=== PATIENT | male | born 1990 | race Caucasian/White ===

== ENCOUNTER 2021-05-04 19:16 | Emergency (ER) | payer MEDICARE, MEDICAID, SELFPAY ==
[2021-05-04 19:17] VITALS: BP 133/83; PULSE 56; RESP 22; TEMP 36; O2SAT 99; BMI 46.0
--- NOTE | 2021-05-04 19:42 | CT_ITS ---
STUDY: CT BRAIN WITHOUT CONTRAST REASON FOR EXAM: Male, 30 years old. headache RADIATION DOSAGE (If Supplied By Facility): CTDIvol = ( 44.99 ) mGy, DLP = ( 779.24 ) mGycm TECHNIQUE: Transaxial CT imaging of the brain was performed without administration of intravenous contrast material. Individualized dose optimization techniques were used for this CT. COMPARISON: 01/21/2016 FINDINGS: Evidence of prior bilateral temporal craniectomies is noted. Ventriculostomy catheter placed through left frontal approach ends in the expected location of the foramen of MONRO. The second ventriculostomy catheter has been removed. There is no intra-/extra-axial fluid collection, mass effect, or midline shift. The reid/white matter junction is preserved. 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 The basal cisterns are patent. Polyps versus retention cysts in the right maxillary sinus. CT/Brain/Head without Contrast IMPRESSION: No definite acute intracranial finding. Electronically Signed: Toan Briseno MD at 20:29 EDT Tel , Service support ,
--- NOTE | 2021-05-04 19:43 | EDS_ITS ---
HPI History of Present Illness Chief Complaint: Other, Pain/Inj Detail of Chief Complaint: Headache and concern for malfunctioning [employer] shunt Informant: patient and spouse/S.O. Narrative Narrative: Patient states that he woke up from a nap about 4:30 PM with severe pain in the right side of his head and some swelling to his scalp on the right. Patient vomited 3-4 times and since then has vomited a total of 6 times. He complains of severe pressure in his head. Patient states last time this happened he required a shunt surgery at [facility] about 5 or 6 years ago. Patient has had a history of hydrocephalus and a [employer]CHIT[employer] shunt since he was an infant. Patient denies fever or recent illness. He denies Covid symptoms. Patient scheduled to follow-up in 1 week with neurosurgeon at [facility] because his significant other could not get anybody in [place] to see him for several months and she felt that he needed to have his [employer] shunt evaluated as patient has not followed up with a neurosurgeon in years. Patient has not had any issues with his [employer] shunt leading up to today. Prior similar symptoms: Yes [facility] Medical History (Updated 05/04/21 @ 22:[address] Roby Leal, DO) Blood clots in brain Home Medications buspirone 5 mg PO BID 05/04/21 [History Last Taken Unknown] citalopram [Celexa] 40 mg PO DAILY 05/04/21 [History Last Taken Unknown] lisinopril 10 mg PO DAILY 05/04/21 [History Last Taken Unknown] Allergy/AdvReac Type Severity Reaction Status Date / Time No Known Allergies Allergy Verified 05/04/21 19:17 Social History Smoking Status: Current every day smoker tobacco type: cigarettes ROS ROS ED Constitutional Constitutional ED: Reports systems reviewed and no addt'l complaints, except as documented; Denies body ache(s), change in weight or chills Eyes Eyes: Denies acute decrease in peripheral vision, change in vision, double vision or loss of vision ENT ENT ED: Reports none; Denies ear pain, lip swelling, loss taste/smell, neck pain, otalgia or sore throat Cardiovascular Cardiovascular: Reports none; Denies abdominal pain, chest pain with activity, leg edema, lightheadedness, palpitations, rapid heart rate or syncope Respiratory/Chest Respiratory/Chest: Reports none; Denies change in mental status, dry cough, dyspnea, hemoptysis, shortness of breath at rest or shortness of breath with exertion Gastrointestinal Gastrointestinal: Reports none, nausea and vomiting; Denies abdominal pain, change in stool character, diarrhea, hematemesis, hematochezia, melena or rectal bleeding Genitourinary Genitourinary ED: Reports none; Denies abdominal discomfort, anuria, dysuria, genital pain or polyuria Musculoskeletal Musculoskeletal: Reports none; Denies arthralgias, back pain, difficulty walking, extremity pain, muscle weakness or myalgias Integumentary Reports none; Denies abscess or rash Neurologic Neurologic: Reports none and headache(s); Denies abnormal gait, confusion, focal weakness, frequent falls, loss of vision, numbness, paresthesias, radicular pain, vertigo or weakness Psychiatric Psychiatric: Reports systems reviewed and no addt'l complaints, except as documented and none; Denies behavioral changes, confusion, difficulty concentrating, hallucinations, suicidal ideation, tactile hallucinations or visual hallucinations Endocrine Endocrinology: Denies none, cold intolerance, excessive sweating, fatigue or heat intolerance Hematologic/Lymphatic Hematologic/Lymphatic: Reports none; Denies anemia, easy bleeding or easy bruising Allergic/Immunologic Allergic/Immunologic ED: Denies as per HPI, none, lip swelling, mouth swelling, throat swelling, tongue swelling or hives EXAM Physical Exam Const Vital Signs: 05/04/21 19:17 05/04/21 22:45 Temperature 96.8 F L 98.0 F Temperature Source Temporal Temporal Pulse Rate 56 L 58 L Respiratory Rate 22 H 16 Blood Pressure 133/83 H 143/82 H Blood Pressure Mean 99 102 Pulse Ox 99 97 Oxygen Delivery Method Room Air Room Air Positive well nourished and well developed General Appearance ED: well developed and NAD HEENT Reports TM's clear and moist mucous membranes normocephalic and atraumatic; Negative for trauma or tenderness Tympanic Membrane ED: Yes TM's clear Eyes PERRL and EOMs intact bilaterally General Eye ED: Negative for pale conjunctiva or scleral icterus Neck no lymphadenopathy, supple and no JVD General: Negative for tenderness Chest Wall inspection of chest normal and palpation of chest normal Chest: Negative for tenderness Resp normal respiratory effort and clear to auscultation bilaterally Effort and Inspection: Negative for respiratory distress or pain with movement Auscultation: Negative for rhonchi, wheezes or diminished lung sounds Cardio regular rate, regular rhythm, S1 normal heart sound, S2 normal heart sound and no murmurs Peripheral Pulses: pulses 2+ throughout GI normal to inspection, nondistended, normoactive bowel sounds, soft to palpation, non-tender, non-distended and no masses Back/Spine no CVA tenderness and no thoracic nor lumbar tenderness Extremity normal to inspection General Extremety ED: Negative for edema General Extremity: Negative for edema Neuro oriented x3, CN's II-XII intact bilaterally, no sensory deficits noted and gait normal Sensorium / Orientation: awake, alert, oriented to person, oriented to place and oriented to time Motor Exam: strength 5/5 throughout and strength abnormal Psych mental status grossly normal Skin no rashes or lesions noted and no wounds MDM MDM MDM Narrative Medical decision making narrative: Patient will require a shunt evaluation. I suspect the elevated white count likely reactive due to retching and vomiting. He has not had any other infectious illness symptoms otherwise. Initially contacted [facility] to attempt to transfer patient there however they are on bypass and not accepting any patients. [facility] has been full and we have patients in our department awaiting beds there. Patient and his significant other requesting a [facility] facility and therefore I discussed case with Lilo in [facility]. Discussed case with who accepted transfer of patient. Lab Data Labs: Laboratory Results - last 24 hr 05/04/21 05/04/21 19:55 19:55 WBC 15.2 H RBC 5.12 Hgb 15.9 Hct 47.5 MCV 92.8 MCH 31.1 MCHC 33.5 RDW Std Deviation 43.8 RDW Coeff of Michelle 12.8 Plt Count 302 MPV 9.6 Immature Gran % (Auto) 0.500 Neut % (Auto) 77.3 H Lymph % (Auto) 15.2 L [place] % (Auto) 4.4 Eos % (Auto) 2.2 Baso % (Auto) 0.4 Absolute Neuts (auto) 11.7 H Absolute Lymphs (auto) 2.30 Nucleated RBC % 0 Sodium 140 Potassium 3.8 Chloride 108 H Carbon Dioxide 25.0 Anion Gap 7 BUN 16 Creatinine 0.85 Estim Creat Clear Calc 114.67 Est GFR (MDRD) Af Amer 136 Est GFR (MDRD) Non-Af 113 BUN/Creatinine Ratio 18.9 Glucose 106 Calcium 8.9 Radiography Diagnostic Testing: Radiology Impression Brain CT 05/04/21 19:42 IMPRESSION: No definite acute intracranial finding. Electronically Signed: Toan Briseno MD at 20:29 EDT Tel , Service support , Shuntogram 05/04/21 20:19 IMPRESSION: No evidence of discontinuity in the ventriculoperitoneal catheter. Apparent kinking of the catheter in 3 places, upper and lower abdomen. Electronically Signed: Toan Briseno MD at 20:56 EDT Tel , Service support , Discharge Plan Triage Chief Complaint: Other, Pain/Inj ED Provider: Roby Leal Dx/Rx/DC Orders Clinical Impression: Cephalalgia Prescriptions: No Action buspirone 5 mg Tablet 5 mg PO BID RF: 0 citalopram [Celexa] 40 mg Tablet 40 mg PO DAILY RF: 0 lisinopril 10 mg Tablet 10 mg PO DAILY RF: 0 Primary Care Provider: Delmi Doty NP Referrals: Delmi Doty NP, AUDIENCE COORDINATOR-C [Primary Care Provider] - Disposition Disposition: Transfer to Another Type [facility]
[2021-05-04] MEDS: Ondansetron 4 MG/2 ML Vial IV ×2 (19:56→23:31)
[2021-05-04] MEDS: Morphine 4 MG/ML Syringe IV ×2 (19:57→21:47)
[2021-05-04 20:12] LABS: Absolute Neutrophil Count 11.7 X10^3/uL (2.0-7.7); Basophil# 0.06 X10^3/uL; Basophil% 0.4 % (0-1); Eosinophil# 0.33 X10^3/uL; Eosinophils% 2.2 % (0-5); Hematocrit 47.5 % (40-54); Hemoglobin 15.9 g/dL (13.0-16.5); Lymphocyte % 15.2 % (19-41); Mean Corp Hgb Conc 33.5 g/dL (32-36); Mean Corpuscular Hgb 31.1 pg (27.0-32.0); Mean Corpuscular Volume 92.8 fL (80-94); Mean Platelet Vol. 9.6 fl (6.2-12.0); Monocyte# 0.67 X10^3/uL; Monocyte% 4.4 % (0-10); NRBC Flagged by Analyzer 0 % (0-5); Neutrophil # 11.72 X10^3/uL (2.7-7.7); Neutrophil % 77.3 % (47-70); Platelet Count 302 K/mm3 (150-450); RBC Distribution Width CV 12.8 % (11.6-14.6); RBC Distribution Width SD 43.8 fl (35.1-43.9); Red Blood Count 5.12 M/mm3 (4.6-6.2); White Blood Count 15.2 K/mm3 (4.4-11.0)
--- NOTE | 2021-05-04 20:19 | RAD_ITS ---
CLINICAL HISTORY: Male, 30 years old. Headache PROCEDURE: 4 views of the head, neck, chest, and abdomen Findings: Left ventriculoperitoneal catheter and in the lower abdomen. The catheter appears to be contained in 3 places, upper abdomen and lower abdomen.. There is no evidence of discontinuity in the shunt. Lungs clear. Cardiac silhouette unremarkable. Moderate amount of retained stool in the colon with no evidence of bowel obstruction. Apparent minimal dextroscoliosis of the lumbar spine is seen. RAD/Shuntogram/Prec Placed Shunt IMPRESSION: No evidence of discontinuity in the ventriculoperitoneal catheter. Apparent kinking of the catheter in 3 places, upper and lower abdomen. Electronically Signed: Toan Briseno MD at 20:56 EDT Tel , Service support ,
[2021-05-04 20:25] LABS: Anion Gap 7 (5-15); BUN 16 mg/dL (7-18); BUN/Creat Ratio 18.9 RATIO (10-20); Calcium,Total 8.9 mg/dL (8.5-10.1); Chloride 108 mmol/L (98-107); Creatinine, Serum 0.85 mg/dL (0.70-1.30); EST Glomerular Filtration Rate 113 mL/min (>60); Est Glom Filt Rate - Afr Amer 136 mL/min (>60); Estimated Creatinine Clearance 114.67 ml/min; Glucose 106 mg/dL (74-106); Potassium 3.8 mmol/L (3.5-5.1); Sodium Level 140 mmol/L (136-145)
--- NOTE | 2021-05-04 21:05 | ED.RN ---
CONTACTED [facility] FOR POSSIBLE TRANSFER AT THIS THE HOSPITAL IS FULL AND BED BOARDING IN THE ER. UNABLE TO ACCEPT NEW PATIENTS AT THIS TIME
--- NOTE | 2021-05-04 22:16 | ED.RN ---
[facility] called for possible transfer they will page doctor out
[2021-05-04 22:45] VITALS: BP 143/82; PULSE 58; RESP 16; TEMP 36.7; O2SAT 97
[2021-05-04 23:51] VITALS: BP 143/82; PULSE 58; RESP 16; TEMP 36.7; O2SAT 97
== END 2021-05-04 23:37 ==
PROVIDERS: Emergency Provider Emergency Medicine; PCP Nurse Practitioner Family
DX: R51.9 Headache, unspecified (principal); R11.10 Vomiting, unspecified; Z20.822 Contact with and (suspected) exposure to COVID-19; F17.210 Nicotine dependence, cigarettes, uncomplicated; Z79.899 Other long term (current) drug therapy; Z98.2 Presence of cerebrospinal fluid drainage device
CPT/HCPCS: 70450; 75809; 80048; 85025; 87426; 96374; 96375; 96376; 99285; A4216; J2405

== ENCOUNTER 2022-06-16 00:26 | Emergency (ER) | payer MEDICARE, MEDICAID, SELFPAY ==
[2022-06-16 00:27] VITALS: BP 153/86; PULSE 65; RESP 18; TEMP 37; O2SAT 98; BMI 44.2
--- NOTE | 2022-06-16 01:00 | RAD_ITS ---
INDICATION: VPS eval EXAMINATION/TECHNIQUE: X-RAY - XR Chest 2 Views COMPARISON: None. FINDINGS: LINES/DEVICES: Left ventriculoperitoneal shunt noted without disruption in the thoracic field of view. LUNGS: No consolidation, edema or effusion. No pneumothorax. MEDIASTINUM AND CARDIOVASCULAR STRUCTURES: Cardiac silhouette not enlarged. Central airways and mediastinal contour are unremarkable. BONES AND SOFT TISSUES: Unremarkable. RAD/Chest PA and Lateral IMPRESSION: No radiographic evidence of acute cardiopulmonary disease. No evidence of ventriculoperitoneal shunt disruption in the thoracic field of view. Electronically Signed: Carlos Olson MD at 6:39 EDT ,
[2022-06-16] MEDS: Metoclopramide 10 MG/2 ML Vial 5 MG IV (01:05)
[2022-06-16 01:08] LABS: Absolute Lymphocyte Count 4.04 X10^3/uL (0.83-4.51); Absolute Neutrophil Count 7.1 X10^3/uL (2.0-7.7); Basophil# 0.04 X10^3/uL; Basophil% 0.3 % (0-1); Eosinophil# 0.44 X10^3/uL; Eosinophils% 3.6 % (0-5); Hematocrit 49.2 % (40-54); Hemoglobin 16.7 g/dL (13.0-16.5); Lymphocyte # 4.04 X10^3/ul (0.83-4.51); Mean Corp Hgb Conc 33.9 g/dL (32-36); Mean Corpuscular Hgb 31.5 pg (27.0-32.0); Mean Corpuscular Volume 92.8 fL (80-94); Mean Platelet Vol. 9.3 fl (6.2-12.0); Monocyte# 0.58 X10^3/uL; Monocyte% 4.7 % (0-10); NRBC Flagged by Analyzer 0 % (0-5); Neutrophil # 7.13 X10^3/uL (2.7-7.7); Neutrophil % 58.2 % (47-70); Platelet Count 308 K/mm3 (150-450); RBC Distribution Width SD 44.3 fl (35.1-43.9); White Blood Count 12.3 K/mm3 (4.4-11.0)
--- NOTE | 2022-06-16 01:12 | CT_ITS ---
INDICATION: headache, shunt EXAMINATION: CT BRAIN - CT Head or Brain W/O Contrast Injection TECHNIQUE: Multiple axial images were obtained of the head without intravenous contrast. A radiation dose optimization technique was used for this scan. IV Contrast dosage and agent: None. COMPARISON: May 04, 2021 FINDINGS: BRAIN PARENCHYMA: Bilateral craniotomy with left frontal parietal ventricular shunt unchanged from prior CT. No hydrocephalus. Chronic 2 mm dural thickening or extra-axial fluid without change from May 04, 2021 deep to left craniotomy, axial image 25. Mallory-white matter differentiation is preserved. No intracranial mass or mass effect. No superficial scalp hematoma. Unremarkable orbits. Scattered mild paranasal sinus mucoperiosteal thickening. Mastoid air cells are clear. ASPECTS Score for Acute Strokes: 10 CT/Brain/Head without Contrast IMPRESSION: No evidence of acute intracranial process.. Postsurgical, chronic findings as above without significant change from May 04, 2021 Electronically Signed: Carlos Olson MD at 1:55 EDT ,
--- NOTE | 2022-06-16 01:14 | EX.ED.VIS.HA ---
HPI History of Present Illness Chief Complaint: Headache Informant: patient Onset/Context/Timing Onset: Today Context: Gradual and Onset (Earlier, headache present all day) Timing: Continuous Quality -Headache: Positive for Throbbing Location: Occipital Current Severity: Moderate Maximum Severity: Moderate Worsened by: Nothing Relieved by: Nothing Associated Symptoms/Injury Associated Symptoms: Positive for Nausea, Vomiting and - (Off balance with walking); Negative for Fever, Sore Throat, Numbness, Tingling, Visual Changes, Blurred Vision, Photophobia or Visual Loss Injury - IRIZARRY: Negative for Direct Trauma, Fall or Assault Narrative Narrative: Patient has a history of congenital hydrocephalus that required a [employer] CROPS shunt, he has had replacements and revision as the last one was in 2016, he states he gets headaches every day but they are usually either right or left or both, today it has been occipital, more severe with regards to the severity than he is used to with his normal headaches, and associated with vomiting which is new. He denies any fevers or chills, no recent confusion, he has been off balance but no other focal neurologic symptoms, no neck stiffness. He has had his shunt surgeries done at [facility]. [facility] Medical History (Updated 06/16/22 @ 02:[address] Raudel Peter MD) Blood clots in brain Hydrocephalus, congenital Home Medications NK 06/16/22 [History Last Taken Unknown] Allergy/AdvReac Type Severity Reaction Status Date / Time No Known Allergies Allergy Verified 05/04/21 19:17 Surgical History (Updated 06/16/22 @ 02:[address] Raudel Peter MD) F[employer] CROPS (ventriculoperitoneal) shunt status Social History Smoking Status: Current every day smoker tobacco type: cigarettes ROS ROS ED Constitutional Constitutional ED: Denies chills or fever(s) Eyes Eyes: Denies change in vision or diplopia ENT ENT ED: Denies rhinorrhea or sore throat Cardiovascular Cardiovascular: Denies chest pain or palpitations Respiratory/Chest Respiratory/Chest: Denies cough or dyspnea Gastrointestinal Gastrointestinal: Reports nausea and vomiting; Denies abdominal pain or diarrhea Genitourinary Genitourinary ED: Denies dysuria or hematuria Musculoskeletal Musculoskeletal: Denies back pain or neck pain Integumentary Denies abscess or rash Neurologic Neurologic: Reports as per HPI, disequilibrium and headache(s); Denies dizziness, focal weakness, other visual disturbances, paresthesias or weakness Psychiatric Psychiatric: Denies anxiety or suicidal thoughts EXAM Physical Exam Const Vital Signs: 06/16/22 00:27 Temperature 98.6 F Temperature Source Oral Pulse Rate 65 Respiratory Rate 18 Blood Pressure 153/86 H Blood Pressure Mean 108 Pulse Ox 98 Oxygen Delivery Method Room Air Positive well nourished and well developed General Appearance ED: well developed and NAD HEENT Reports moist mucous membranes HEENT Narrative: Patient is well-healed cranial scars bilaterally, he is tender on the right but he states that is chronically sensitive and feels no different than usual. No erythema, boggy areas, or anything other than scar tissue palpable. normocephalic and atraumatic Eyes PERRL and EOMs intact bilaterally Neck full ROM, no lymphadenopathy, supple and no meningeal signs Neck Narrative: No erythema or tenderness, no [employer] CROPS shunt palpable Resp normal respiratory effort and clear to auscultation bilaterally Cardio regular rate, regular rhythm and no murmurs GI non-tender and non-distended Auscultation: normoactive bowel sounds Palpation: soft Back/Spine no CVA tenderness General Back: other FROM Extremity normal to inspection General Extremety ED: Negative for edema, pulses abnormal or tenderness General Extremity: Negative for edema or pulses abnormal Neuro oriented x3, CN's II-XII intact bilaterally and no sensory deficits noted Neuro Narrative: Normal [id number] and [id number] bilaterally [place] Coma Scale: document GCS findings Spontaneous Obeys Commands Oriented 15 Sensorium / Orientation: awake and alert Motor Exam: strength 5/5 throughout Skin no rashes or lesions noted and no wounds MDM MDM MDM Narrative Medical decision making narrative: Given history of hydrocephalus and the patient's unusual headache, shunt series and CT head is indicated. This was done, the CT shows nothing acute, no evidence of acute hydrocephalus. Shunt series was done by first doing a two-view chest x-ray which on my interpretation shows nothing acute, and 6 view abdominal x-ray series, together on my interpretation all show nothing acute and continuity with regards to the shunt that curls in the left side of the peritoneum. Patient was given Reglan while we were doing this work-up. On reevaluation he states he feels much better, his nausea is resolved and his headache is almost completely gone. He does confirm that he has been diagnosed with migraines in the past. At this time I see nothing that requires him to be admitted or seek urgent neurosurgical evaluation. We discussed reasons to follow-up and to return he is comfortable with that plan. Lab Data Attestation: I reviewed the patient's lab results. Labs: Laboratory Results - last 24 hr 06/16/22 06/16/22 00:58 00:58 WBC 12.3 H RBC 5.30 Hgb 16.7 H Hct 49.2 MCV 92.8 MCH 31.5 MCHC 33.9 RDW Std Deviation 44.3 H RDW Coeff of Michelle 13.0 Plt Count 308 MPV 9.3 Immature Gran % (Auto) 0.200 Neut % (Auto) 58.2 Lymph % (Auto) 33.0 Conway % (Auto) 4.7 Eos % (Auto) 3.6 Baso % (Auto) 0.3 Absolute Neuts (auto) 7.1 Absolute Lymphs (auto) 4.04 Nucleated RBC % 0 Sodium 139 Potassium 3.6 Chloride 105 Carbon Dioxide 26.0 Anion Gap 8 BUN 9 Creatinine 0.92 Estim Creat Clear Calc 104.98 Est GFR (MDRD) Af Amer 123 Est GFR (MDRD) Non-Af 102 BUN/Creatinine Ratio 9.8 L Glucose 137 H Calcium 9.3 Radiography Diagnostic Testing: Clinical Impression(s) from Imaging Studies Brain CT 06/16/22 01:12 IMPRESSION: No evidence of acute intracranial process.. Postsurgical, chronic findings as above without significant change from May 04, 2021 Electronically Signed: Carlos Olson MD at 1:55 EDT , Discharge Plan Triage Chief Complaint: Headache ED Provider: Raudel Peter Dx/Rx/DC Orders Clinical Impression: Migraine headache, [employer] CROPS (ventriculoperitoneal) shunt status Instructions: ED, Migraine (Classical) Prescriptions: No Action NK Primary Care Provider: Delmi Doty NP Referrals: Delmi Doty NP, GUEST EXPERIENCE SPECIALIST-C [Primary Care Provider] - 3-5 Days if not improving (Or your neurosurgeon) Disposition Disposition: Home, Self Care
[2022-06-16 01:22] LABS: Anion Gap 8 (5-15); BUN 9 mg/dL (7-18); BUN/Creat Ratio 9.8 RATIO (10-20); Calcium,Total 9.3 mg/dL (8.5-10.1); Chloride 105 mmol/L (98-107); Creatinine, Serum 0.92 mg/dL (0.70-1.30); EST Glomerular Filtration Rate 102 mL/min (>60); Est Glom Filt Rate - Afr Amer 123 mL/min (>60); Estimated Creatinine Clearance 104.98 ml/min; Glucose 137 mg/dL (74-106); Potassium 3.6 mmol/L (3.5-5.1); Sodium Level 139 mmol/L (136-145)
--- NOTE | 2022-06-16 01:30 | RAD_ITS ---
INDICATION: VPS eval EXAMINATION/TECHNIQUE: X-RAY - XR Abdomen W/ Decub and/or Erect Views: 6 view COMPARISON: Chest radiograph on same day FINDINGS: TUBES: Ventriculoperitoneal shunt noted without evidence of disruption comment, coiled in the left upper pelvis. BOWEL GAS PATTERN: Nonspecific non-obstructive bowel gas pattern. No focal stomach or bowel distention. Moderate colonic stool burden. FREE AIR: Not well assessed on a supine view. ORGANOMEGALY: Not seen. CALCIFICATIONS: No concerning calcifications. LOWER CHEST: No acute pathology. BONES AND SOFT TISSUES: No acute pathology. RAD/Abd Inc Decub and/or Erect IMPRESSION: Ventriculoperitoneal shunt without evidence of disruption in the abdominal pelvic field of view. Non-obstructive bowel gas pattern. Moderate stool. Electronically Signed: Carlos Olson MD at 6:41 EDT ,
[2022-06-16 02:41] VITALS: PULSE 81; RESP 18; O2SAT 100
== END 2022-06-16 02:43 | disposition home or self-care (01) ==
PROVIDERS: Emergency Provider Emergency Medicine; PCP Nurse Practitioner Family; Visit Provider Emergency Medicine
DX: G43.909 Migraine, unspecified, not intractable, without status migrainosus (principal); Z98.2 Presence of cerebrospinal fluid drainage device; F17.210 Nicotine dependence, cigarettes, uncomplicated
CPT/HCPCS: 70450; 71046; 74019; 80048; 85025; 96374; 99283; A4216

== ENCOUNTER 2025-04-02 20:24 | Emergency (ER) | payer MEDICARE, MEDICAID, SELFPAY ==
[2025-04-02 20:25] VITALS: BP 153/79; PULSE 85; RESP 18; TEMP 36.6; O2SAT 97; BMI 46.0
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
--- NOTE | 2025-04-02 21:18 | CT_ITS ---
EXAM: CT Chest, Abdomen and Pelvis With Intravenous Contrast CLINICAL INDICATION: TRAUMA TECHNIQUE: Axial computed tomography images of the chest, abdomen and pelvis with intravenous contrast. This CT exam was performed using one or more of the following dose reduction techniques: automated exposure control, adjustment of the mA and/or kV according to patient size, and/or use of iterative reconstruction technique. COMPARISON: No relevant prior studies available. FINDINGS: CHEST: LUNGS AND PLEURAL SPACES: Mild emphysema/COPD. No mass. No consolidation. No significant effusion. No pneumothorax. HEART: Unremarkable. No cardiomegaly. No significant pericardial effusion. No significant coronary artery calcifications. MEDIASTINUM: A few prominent mediastinal lymph nodes measuring up to 6 mm. Small hiatal hernia. ABDOMEN: LIVER: Large fatty liver. GALLBLADDER AND BILE DUCTS: Unremarkable. No calcified stones. No ductal dilation. PANCREAS: Unremarkable. No ductal dilation. No mass. SPLEEN: Unremarkable. No splenomegaly. ADRENALS: Unremarkable. No mass. KIDNEYS AND URETERS: Unremarkable. No hydronephrosis. No solid mass. STOMACH AND BOWEL: Constipation. Colonic diverticulosis without acute diverticulitis. No obstruction. PELVIS: APPENDIX: No findings to suggest acute appendicitis. BLADDER: Unremarkable. No mass. REPRODUCTIVE: Unremarkable as visualized. CHEST, ABDOMEN and PELVIS: INTRAPERITONEAL SPACE: Unremarkable. No significant fluid collection. No free air. BONES/JOINTS: Unremarkable. No acute fracture. SOFT TISSUES: Unremarkable. VASCULATURE: Unremarkable. No aortic aneurysm. LYMPH NODES: See above. TUBES, LINES AND DEVICES: FURNACE LOADER shunt with the distal tip in the right lower abdominal quadrant. CT/CT Chest, Abd, Pel w/Contrast IMPRESSION: No CT evidence of thoracic, abdominal or pelvic visceral injury. Reading Location: [id number]
--- NOTE | 2025-04-02 21:18 | CT_ITS ---
EXAM: CT Cervical Spine Without Intravenous Contrast CLINICAL INDICATION: INJURY/PAIN TECHNIQUE: Axial computed tomography images of the cervical spine without intravenous contrast. This CT exam was performed using one or more of the following dose reduction techniques: automated exposure control, adjustment of the mA and/or kV according to patient size, and/or use of iterative reconstruction technique. COMPARISON: No relevant prior studies available. FINDINGS: VERTEBRAE: Unremarkable. No acute fracture. DISCS/SPINAL CANAL/NEURAL FORAMINA: No acute findings. No significant spinal canal stenosis. SOFT TISSUES: Unremarkable. CT/Spine Cervical without Contras IMPRESSION: No acute fracture. Reading Location: [id number]
--- NOTE | 2025-04-02 21:18 | CT_ITS ---
EXAM: CT Head Without Intravenous Contrast CLINICAL INDICATION: INJURY/PAIN TECHNIQUE: Axial computed tomography images of the head/brain without intravenous contrast. This CT exam was performed using one or more of the following dose reduction techniques: automated exposure control, adjustment of the mA and/or kV according to patient size, and/or use of iterative reconstruction technique. COMPARISON: CT Head dated 06/16/2022 FINDINGS: BRAIN AND EXTRA-AXIAL SPACES: No acute intracranial hemorrhage, midline shift or mass effect. If symptoms persist, further evaluation with MRI is recommended. BONES/JOINTS: See below. SOFT TISSUES: Unremarkable. SINUSES: Mucosal thickening of the left maxillary sinus. MASTOID AIR CELLS: Unremarkable as visualized. No mastoid effusion. TUBES, LINES AND DEVICES: Left parietal approach UNIT REACTOR OPERATOR shunt with the distal tip of the lateral ventricle. No hydrocephalus. Right parietal craniectomy. CT/Brain/Head without Contrast IMPRESSION: 1. No acute intracranial hemorrhage, midline shift or mass effect. If symptoms persist, further evaluation with MRI is recommended. 2. No significant change from the prior exam. Reading Location: [id number]
[2025-04-02] MEDS: Morphine 4 MG/ML Syringe IV (21:56)
[2025-04-02] MEDS: Ondansetron 4 MG/2 ML Vial IV (21:56)
[2025-04-02 22:50] VITALS: BP 137/84; PULSE 85; RESP 16; TEMP 36.7; O2SAT 97
== END 2025-04-02 22:51 | disposition home or self-care (01) ==
PROVIDERS: Emergency Provider Emergency Medicine; PCP Nurse Practitioner Family; Referring Provider Emergency Medicine; Visit Provider Emergency Medicine
DX: S16.1XXA Strain of muscle, fascia and tendon at neck level, initial encounter (principal); S09.90XA Unspecified injury of head, initial encounter; S20.20XA Contusion of thorax, unspecified, initial encounter; S30.1XXA Contusion of abdominal wall, initial encounter; Y92.481 Parking lot as the place of occurrence of the external cause; Z79.899 Other long term (current) drug therapy; V43.52XA Car driver injured in collision with other type car in traffic accident, initial encounter; F17.210 Nicotine dependence, cigarettes, uncomplicated
CPT/HCPCS: 70450; 71260; 72125; 74177; 96374; 96375; 99284; Q9967; A4216; J2405

== ENCOUNTER 2025-04-13 14:33 | Emergency (ER) | payer MEDICARE, MEDICAID, SELFPAY ==
[2025-04-13] VITALS (7 sets, daily range): BP systolic 124–159; BP diastolic 74–91; PULSE 63–93; RESP 14–18; TEMP 35.4–36.6; O2SAT 95–98; BMI 41.5
--- NOTE | 2025-04-13 15:16 | RAD_ITS ---
PROCEDURE: SHUNTOGRAM/PREV PLACED SHUNT 04/13/2025 REASON FOR EXAM: HEADACHE TECHNIQUE: SHUNTOGRAM/PREV PLACED SHUNT COMPARISON: CT head 04/13/2025, CT chest, abdomen, and pelvis 04/02/2025 FINDINGS: There is a left-sided ventriculoperitoneal shunt catheter, as seen on same day CT head. The shunt tubing appears intact throughout its course. There is focal curvature of the shunt tubing near the level of the diaphragm. Tubing tip is in the left lower quadrant of the abdomen, with a wide loop in the tubing just proximal to the termination which measures 9.8 cm in diameter. Lungs are clear without focal consolidation or pleural effusion. Nonobstructive bowel gas pattern. RAD/Shuntogram/Prev Placed Shunt IMPRESSION: 1.Focal curvature of the shunt tubing near the level of the diaphragm, possibly artifactual as this is in close proximity to the shunt entrance into the abdominal cavity. Consider a lateral view to exclude k inking in this location. 2. The shunt tubing demonstrates a loop measuring 9.8 cm in diameter in the le ft lower quadrant of the abdomen, new since CT on 04/02/2025. 3. No evidence of shunt tubing discontinuity. 4. See same-day head CT for better evaluation of the intracranial shunt portio ns. Reading Location: [facility]
--- NOTE | 2025-04-13 15:23 | EX.ED.DYSGE1 ---
HPI History of Present Illness Chief Complaint: Headache Narrative Narrative: Patient is a 34-year-old male with past medical history of SUPERVISOR DRY PASTE shunt with 24 revisions thus far who presents to the emergency department with a chief complaint of headache. Patient states that for the past 2 days he had headache and notes that usually if he has severe headache like this there is an issue therefore he came here for further evaluation management. Patient states that he has not any injuries or trauma to his head denies blood thinning medications. Patient notes that he has not taken anything for his headache thus far either. [facility] Medical History Hydrocephalus, congenital Blood clots in brain Home Medications ?Medication ?Instructions ?Recorded ?Last Taken ?Type clonidine HCl 0.1 mg tablet mg PO 04/02/25 Unknown History risperidone 1 mg tablet 1 mg PO QHS 04/02/25 Unknown History topiramate 100 mg tablet 100 mg PO DAILY 04/02/25 Unknown History Allergy/AdvReac Type Severity Reaction Status Date / Time No Known Allergies Allergy Verified 04/13/25 14:35 Surgical History SUPERVISOR DRY PASTE (ventriculoperitoneal) shunt status Social History Smoking Status: Current every day smoker tobacco type: cigarettes ROS ROS ED ROS Narrative Constitutional: Complains of headache as noted above denies lightheadedness, dizziness, fevers, chills Eyes: Denies double vision blurry vision Cardiovascular: Denies chest pain Respiratory: Shortness of breath Abdomen: Denies abdominal pain nausea vomit diarrhea : Denies urinary symptoms Neurological: Denies numbness, wheeze, tingling Musculoskeletal: Denies back pain Skin: Denies any rashes or lesions EXAM Physical Exam Narrative Exam Narrative: General: Patient lying in bed rest comfortably did not appear to be acute distress Head: Atraumatic, normocephalic Eyes: PERRL bilaterally, EOMI Bilik no conjunctival injection noted Neck: Soft and supple, trachea midline Cardiovascular: Regular rate and rhythm Respiratory: Clear to auscultation bilaterally Abdomen: Soft, nondistended, nontender to palpation Extremities: +5/5 strength noted in the bilateral upper and lower extremities, radial pulses +2/4 in the bilateral extremities Neurological: Patient following commands knew that he was at [facility] year is 2024 NIH of 0 GCS 15 Skin: Warm, dry, tact no rashes or lesions noted Const Vital Signs: 04/13/25 14:33 04/13/25 16:00 04/13/25 17:00 Temperature 95.7 F L Temperature Source Oral Pulse Rate 75 63 93 Respiratory Rate 18 16 18 Blood Pressure 159/91 H 129/81 H 137/79 H Blood Pressure Mean 113 97 98 Pulse Ox 98 96 97 Oxygen Delivery Method Room Air Room Air Room Air 04/13/25 18:00 04/13/25 19:00 04/13/25 20:00 Temperature Temperature Source Pulse Rate 70 65 69 Respiratory Rate 14 16 18 Blood Pressure 130/85 H 124/80 H 139/87 H Blood Pressure Mean 100 94 104 Pulse Ox 96 95 98 Oxygen Delivery Method Room Air Room Air MDM MDM MDM Narrative Medical decision making narrative: Patient is a 34-year-old male who presented to the emergency department the chief complaint of headache. On the differential diagnose includes but not limited to shunt malfunction, fractured shunt, intracranial hemorrhage, tension headache, cluster headache. Patient given IV fluids Reglan and Tylenol. Patient's leukocytosis was noted be 11,000 this is chronically elevated according to previous blood draws, hemoglobin stable at 16.8, platelet count of 316. Patient sodium was 139, potassium 3.2 will give 40 mill equivalents of oral supplementation, creatinine was normal at 0.81. Patient's AST and ALT are 23 and [address] head and brain without contrast showed postsurgical and post SUPERVISOR DRY PASTE shunt placement no acute findings. No acute hemorrhage midline shift or mass effect. Stable appearance of the ventricles and cisterns since the previous study suggesting the SUPERVISOR DRY PASTE shunt is functioning properly. Nursing notified me that radiology that is currently on is not going to redo the shunt series as they are not familiar with the studies. I reached out to [facility] As the patient told me that he followed up with them after following with [facility] for his SUPERVISOR DRY PASTE shunt and discussed with neurosurgeon Dr. Rendon. During our discussion the official read of the shunt series did return which was read as focal curvature of the shunt tubing near the level of the diaphragm possible artifact as this is close proximity to the shunt entrance in the abdominal cavity consider a lateral view to exclude kinking in this location the shunt tubing demonstrates a loop measuring 9.8 cm in diameter in the left lower quadrant of the abdomen new since CT on 04/02/2025. No evidence of shunt tubing discontinuity. I discussed these findings with her and she states that given the normal head CT and how long the shunt has been in place she has a very low suspicion that there is kinking at that site. She states that she will follow-up with him in the outpatient setting and he can go home. I discussed this plan with the patient he is agreeable this plan he is advised rotate Tylenol and ibuprofen [id number]. On reevaluation the patient he states that he is feeling much better and would like to go home. All question concerns answered he was discharged home in stable condition with instructions to return with worsening symptoms or concerns. Lab Data Labs: Laboratory Results - last 24 hr 04/13/25 15:19 WBC 11.8 H RBC 5.35 Hgb 16.8 H Hct 48.5 MCV 90.7 MCH 31.4 MCHC 34.6 RDW Std Deviation 43.5 RDW Coeff of Michelle 13.1 Plt Count 316 MPV 9.6 Immature Gran % (Auto) 0.300 Neut % (Auto) 65.5 Lymph % (Auto) 24.6 Sheridan % (Auto) 6.9 Eos % (Auto) 2.1 Baso % (Auto) 0.6 Absolute Neuts (auto) 7.7 Absolute Lymphs (auto) 2.90 Nucleated RBC % 0 Sodium 139 Potassium 3.2 L Chloride 105 Carbon Dioxide 19.8 L Anion Gap 13 BUN 7 Creatinine 0.81 Estim Creat Clear Calc 154.39 Est GFR (MDRD) Non-Af 119 BUN/Creatinine Ratio 8.0 L Glucose 116 H Calcium 9.5 Total Bilirubin 0.32 AST 23 ALT 14 Alkaline Phosphatase 141 H Total Protein 7.7 Albumin 4.4 Globulin 3.4 Albumin/Globulin Ratio 1.3 Radiography Diagnostic Testing: Clinical Impression(s) from Imaging Studies Shuntogram 04/13/25 15:16 IMPRESSION: 1.Focal curvature of the shunt tubing near the level of the diaphragm, possibly artifactual as this is in close proximity to the shunt entrance into the abdominal cavity. Consider a lateral view to exclude kinking in this location. 2. The shunt tubing demonstrates a loop measuring 9.8 cm in diameter in the left lower quadrant of the abdomen, new since CT on 04/02/2025. 3. No evidence of shunt tubing discontinuity. 4. See same-day head CT for better evaluation of the intracranial shunt portions. Reading Location: [id number] Brain CT 04/13/25 15:40 IMPRESSION: Post surgical and post SUPERVISOR DRY PASTE shunt placement. No acute findings. No acute hemorrhage midline shift or mass effect. Stable appearance of the ventricles and cisterns since the previous study suggesting the SUPERVISOR DRY PASTE shunt is functioning properly No interval change since 04/02/2025 Reading Location: [id number] Discharge Plan Triage Chief Complaint: Headache ED Provider: Dwayne Egan Dx/Rx/DC Orders Clinical Impression: Headache, H/O SUPERVISOR DRY PASTE shunt revision Prescriptions: No Action clonidine HCl 0.1 mg tablet PO topiramate 100 mg tablet 100 mg PO DAILY risperidone 1 mg tablet 1 mg PO QHS Primary Care Provider: Delmi Doty NP Referrals: Delmi Doty NP, [facility] [Primary Care Provider] - Activity Restrictions/Additional Instructions: Follow-up your doctor in outpatient setting. Return with worsening symptoms or concerns. Rotate Tylenol and ibuprofen [id number] when you do this you can take something every 3 hours for pain max dose of Tylenol in 24 hours 4000 mg max dose of ibuprofen in 24 hours 3200 mg. Follow-up with Dr. Rendon at [facility] Phone number [phone]. Return with worsening headache, vomiting not tolerating oral intake, any changes in mental status or any other concerns Print Language: Swedish Disposition Disposition: Home, Self Care
[2025-04-13] MEDS: 0.9% Normal Saline (1000mL) 1,000 ML 999 ML IV (15:27)
--- NOTE | 2025-04-13 15:40 | CT_ITS ---
PROCEDURE: BRAIN/HEAD WITHOUT CONTRAST 04/13/2025 REASON FOR EXAM: HEADACHE TECHNIQUE: BRAIN/HEAD WITHOUT CONTRAST Coronal and Sagittal reconstruction series were provided. One or more dose reduction techniques were used (e.g., Automated exposure control, adjustment of the mA and/or kV according to patient size, use of iterative reconstruction technique. RADIATION DOSE SUMMARY: CTDlvol: 44.99 mGy DLP: 897.35 mGycm COMPARISON: 04/02/2025 FINDINGS: Evidence of previous bilateral craniectomies and stable appearance of a previously noted and placed left-sided PRODUCT DELIVERY SPECIALIST shunt. Ventricles and cisterns are unchanged from the previous study suggesting that the shunt is functioning properly. There is no acute hemorrhage midline shift or mass effect. Stable periventricular and deep white matter changes. No skull fracture or scalp hematoma Paranasal sinuses are unremarkable. CT/Brain/Head without Contrast IMPRESSION: Post surgical and post PRODUCT DELIVERY SPECIALIST shunt placement. No acute findings. No acute hemorrhage midline shift or mass effect. Stable appearance of the ventricles and cisterns since the previous study sugge sting the PRODUCT DELIVERY SPECIALIST shunt is functioning properly No interval change since 04/02/2025 Reading Location: [id number]
[2025-04-13 15:41] LABS: Hematocrit 48.5 % (40-54); Hemoglobin 16.8 g/dL (13.0-16.5); Immature Granulocytes Count 0.030 X10^3/uL (0.0-0.0); Mean Corp Hgb Conc 34.6 g/dL (32-36); Mean Corpuscular Volume 90.7 fL (80-94); Mean Platelet Vol. 9.6 fl (6.2-12.0); NRBC Flagged by Analyzer 0 % (0-5); Platelet Count 316 K/mm3 (150-450); RBC Distribution Width CV 13.1 % (11.6-14.6); RBC Distribution Width SD 43.5 fl (35.1-43.9); Red Blood Count 5.35 M/mm3 (4.6-6.2); White Blood Count 11.8 K/mm3 (4.4-11.0)
[2025-04-13 16:17] LABS: AST(SGOT) 23 U/L (<=37); Alanine Aminotransfer ALT/SGPT 14 U/L (<=46); Albumin, Serum 4.4 g/dL (3.5-5.0); Alkaline Phosphatase 141 U/L (40-129); Anion Gap 13 (5-15); BUN 7 mg/dL (4-19); BUN/Creat Ratio 8.0 RATIO (10-20); Calcium,Total 9.5 mg/dL (7.6-11.0); Carbon Dioxide 19.8 mmol/L (21.0-32.0); Chloride 105 mmol/L (98-108); Estimated Creatinine Clearance 154.39 ml/min (50-250); Globulin 3.4 g/dL (2.2-4.2); Glucose 116 mg/dL (70-99); Potassium 3.2 mmol/L (3.3-5.1)
[2025-04-13] MEDS: Ketorolac 30 MG/ML Syringe IV (19:45)
[2025-04-13] MEDS: DiphenhydrAMINE 50 MG/ML Syringe 25 MG IV (19:45)
== END 2025-04-13 20:48 | disposition home or self-care (01) ==
PROVIDERS: Emergency Provider Emergency Medicine; PCP Nurse Practitioner Family; Visit Provider Emergency Medicine
DX: R51.9 Headache, unspecified (principal); Z98.2 Presence of cerebrospinal fluid drainage device; F17.210 Nicotine dependence, cigarettes, uncomplicated; Z79.899 Other long term (current) drug therapy
CPT/HCPCS: 70450; 75809; 80053; 85025; 96361; 96374; 96375; 99283; A4216

== ENCOUNTER 2025-10-03 13:48 | Emergency (ER) | payer MEDICARE, MEDICAID, SELFPAY ==
[2025-10-03 13:49] VITALS: BP 165/112; PULSE 79; RESP 16; TEMP 36.1; O2SAT 97
[2025-10-03 13:56] VITALS: BMI 40.2
--- NOTE | 2025-10-03 14:37 | CT_ITS ---
PROCEDURE: BRAIN/HEAD WITHOUT CONTRAST 10/03/2025 REASON FOR EXAM: HEADACHE, TWISTER TENDER PAPER SHUNT TECHNIQUE: Procedure Code: CTBR Modality: CT Procedure: BRAIN/HEAD WITHOUT CONTRAST Coronal and Sagittal reconstruction series were provided. One or more dose reduction techniques were used (e.g., Automated exposure control, adjustment of the mA and/or kV according to patient size, use of iterative reconstruction technique. RADIATION DOSE SUMMARY: DLP: 762.36 mGycm COMPARISON: CT head 04/13/2025 FINDINGS: Redemonstrated bilateral parietal craniotomies. A left parietal approach ventriculoperitoneal shunt catheter remains in place with the tip at the 3rd ventricle. There is no hydrocephalus. Stable ventricular caliber. No acute hemorrhage. No acute infarct. No significant mass effect or brain herniation. No extra-axial fluid collection. The basal cisterns are patent. The mastoid air cells are clear. Near-complete opacification of the left maxillary sinus where there are aerated mucosal secretions. There is a right calvarial frontal rose marie hole, likely from a prior shunt catheter. CT/Brain/Head without Contrast IMPRESSION: No acute intracranial pathology. Bilateral parietal craniectomies. A left fro ntal approach ventriculoperitoneal shunt catheter remains in place with the tip in the 3rd ventricle. No hydrocephalus. Paranasal sinus disease. Reading Location: [id number]
[2025-10-03] MEDS: 0.9% Normal Saline (1000mL) 1,000 ML 1000 ML IV (14:45)
[2025-10-03 14:47] LABS: Hematocrit 48.2 % (40-54); Hemoglobin 16.4 g/dL (13.0-16.5); Immature Granulocytes Count 0.040 X10^3/uL (0.0-0.0); Mean Corp Hgb Conc 34.0 g/dL (32-36); Mean Corpuscular Volume 93.6 fL (80-94); Mean Platelet Vol. 9.7 fl (6.2-12.0); NRBC Flagged by Analyzer 0 % (0-5); Platelet Count 292 K/mm3 (150-450); RBC Distribution Width CV 13.2 % (11.6-14.6); RBC Distribution Width SD 45.5 fl (35.1-43.9); Red Blood Count 5.15 M/mm3 (4.6-6.2); White Blood Count 8.4 K/mm3 (4.4-11.0)
[2025-10-03 14:48] VITALS: BP 127/78; PULSE 62; RESP 16; O2SAT 97
--- NOTE | 2025-10-03 14:55 | RAD_ITS ---
PROCEDURE: SHUNTOGRAM/PREV PLACED SHUNT 10/03/2025 REASON FOR EXAM: QUALITY SPECIALIST SHUNT, HEADACHE, RIGHT SIDED NECK PAIN TECHNIQUE: Procedure Code: RADSHUNTGRAM Modality: DX Procedure: SHUNTOGRAM/PREV PLACED SHUNT FINDINGS: No discontinuity is noted of the shunt which is coiled in the upper pelvis RAD/Shuntogram/Prev Placed Shunt IMPRESSION: Negative for shunt discontinuity. Reading Location: [facility]
[2025-10-03 15:09] VITALS: BP 128/79; PULSE 55; O2SAT 92
[2025-10-03 15:14] LABS: Anion Gap 11 (5-15); BUN 12 mg/dL (4-19); BUN/Creat Ratio 15.4 RATIO (10-20); Calcium,Total 9.3 mg/dL (7.6-11.0); Carbon Dioxide 20.0 mmol/L (21.0-32.0); Chloride 106 mmol/L (98-108); Estimated Creatinine Clearance 155.72 ml/min (50-250); Glucose 100 mg/dL (70-99); Potassium 4.4 mmol/L (3.3-5.1)
[2025-10-03 16:01] VITALS: BP 112/79; PULSE 51; RESP 14; O2SAT 100
--- NOTE | 2025-10-03 16:02 | EDS_ITS ---
HPI History of Present Illness Chief Complaint: Other, Pain/Inj Narrative Narrative: Patient is a 34-year-old male presenting to the emergency department for a headache and right sided neck pain. 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 He states has had no issues with his shunt since. He follows with a neurologist at [facility]. He states that for the past few months he has had right sided neck pain as well as frequent recurrent right sided headaches. He states that usually in the mornings he wakes up with no headache and no neck pain but then throughout the day he develops both. He denies any pain in the back of his neck. Denies any visual changes, numbness or weakness in his arms or legs. Denies any nausea or vomiting. Denies any recent head trauma or falls. He has been taking Topamax for his headaches, but has not taken any other medications for his symptoms. He states the right sided neck pain worsens with turning his neck to look to his left. He describes it as a pulling sensation. Denies fever or chills. He has talked to his primary care doctor about his neck pain and headaches but has not talked to his neurologist because it has not come to that point. He is unsure when the last time he saw his neurologist was. [facility] Medical History Hydrocephalus, congenital Blood clots in brain Home Medications ?Medication ?Instructions ?Recorded ?Last Taken ?Type clonidine HCl 0.1 mg tablet mg PO 04/02/25 Unknown His tory risperidone 1 mg tablet 1 mg PO QHS 04/02/25 Unknown History topiramate 100 mg tablet 100 mg PO DAILY 04/02/25 Unk nown History Allergy/AdvReac Type Severity Reaction Status Date / Time No Known Allergies Allergy Verified 10/03/25 13:49 Surgical History JUNIOR LOAN PROCESSOR (ventriculoperitoneal) shunt status Social History Smoking Status: Current every day smoker tobacco type: cigarettes ROS ROS ED ROS Narrative see HPI EXAM Physical Exam Narrative Exam Narrative: Vital signs: Reviewed General: Alert and orientedx3. No acute distress. Well appearing, nontoxic. HEENT: Head is normocephalic and atraumatic, sinuses nontender, pupils 2mm equal round and reactive. Nares are patent. Oropharynx and throat exams normal. Neck: Supple without lymphadenopathy nontender. No midline cervical spinal tenderness to palpation. No step-offs or deformities. Trachea is midline. There is no swelling, erythema, warmth or fluctuance/induration to the neck. No findings consistent with cellulitis or abscess. Patient has full active range of motion of the neck. No nuchal rigidity. Cardiovascular: Regular rate and rhythm, no murmurs. No rubs or gallops. Normal S1 and S2 Respiratory: Clear to auscultation bilaterally. No wheezes, rales, rhonchi Abdominal: Soft and nontender. Normal bowel sounds. No guarding or rebound. N onsurgical abdomen Extremities: No tenderness. No bruising. Normal range of motion. Normal sensation. Skin: No rash or redness. Neurological: Cranial nerves II through XII are grossly intact. Normal strength and sensation. Normal cerebellar function The rest of the physical exam is unremarkable Const Vital Signs: 10/03/25 13:49 10/03/25 13:56 10/03/25 14:48 Temperature 97.0 F L Temperature Source Temporal Pulse Rate 79 62 Respiratory Rate 16 16 Respiratory Effort Normal Non-Labored Respiratory Pattern Normal Blood Pressure 165/112 H 127/78 H Blood Pressure Mean 129 94 Pulse Ox 97 97 Oxygen Delivery Method Room Air Room Air 10/03/25 15:09 10/03/25 16:01 10/03/25 16:05 Temperature 98 F Temperature Source Pulse Rate 55 L 51 L 49 L Respiratory Rate 14 16 Respiratory Effort Respiratory Pattern Blood Pressure 128/79 H 112/79 112/79 Blood Pressure Mean 95 90 90 Pulse Ox 92 100 97 Oxygen Delivery Method Room Air MDM MDM MDM Narrative Medical decision making narrative: Patient is a 34-year-old male presenting to the emergency department for headache and neck pain for the past few months. Patient was seen and examined. Vitals are stable. Patient resting in bed comfortably in no acute distress. Differential includes but is not limited to: Malfunction of his J[employer]IOR LO[employer] PROC[employer] shunt includi ng infection or fracture tubing, tension headache, intracranial bleeding. Exam and history most consistent with musculoskeletal neck pain causing headache given his neck pain worsens with turning his head to the left and unremarkable neuro exam. I do not suspect infectious cause of his headache including meningitis or encephalitis given multiple months of symptoms, no fever, normal neurologic exam and no altered mental status with normal range of motion of the neck with no nuchal rigidity. I also do not suspect a shunt infection given no leukocytosis on labs and no fever. Patient given fluids, Tylenol and Reglan. CBC with no leukocytosis and a normal hemoglobin. BMP with no significant abnormalities. CT of the brain shows no acute intracranial pathology. Bilateral parietal craniectomy's. A J[employer]IOR LO[employer] PROCESS[employer] shunt catheter remains in place with the tip of the third ventricle. No hydrocephalus. Patient reevaluated and states that his headache and neck pain are much improved after medications. He was updated on the negative CT brain informed that we are still waiting on the x-ray series at this time. Patient signed out to Dr. Leal pending shuntogram. Anticipate discharge if negative. Clinical impression: Headache Neck pain History & Record Review Discussion w/independent historian: Patient Additional record(s) reviewed:: Prior ED visit and Prior labs Lab Data Attestation: I reviewed the patient's lab results. Labs: Laboratory Results - last 24 hr 10/03/25 14:19 WBC 8.4 RBC 5.15 Hgb 16.4 Hct 48.2 MCV 93.6 MCH 31.8 MCHC 34.0 RDW Std Deviation 45.5 H RDW Coeff of Michelle 13.2 Plt Count 292 MPV 9.7 Immature Gran % (Auto) 0.500 Neut % (Auto) 58.6 Lymph % (Auto) 30.7 Haakon % (Auto) 6.2 Eos % (Auto) 3.3 Baso % (Auto) 0.7 Absolute Neuts (auto) 4.9 Absolute Lymphs (auto) 2.57 Nucleated RBC % 0 Sodium 137 Potassium 4.4 Chloride 106 Carbon Dioxide 20.0 L Anion Gap 11 BUN 12 Creatinine 0.79 Estim Creat Clear Calc 155.72 Est GFR (MDRD) Non-Af 120 BUN/Creatinine Ratio 15.4 Glucose 100 H Calcium 9.3 Radiography Diagnostic Testing: Clinical Impression(s) from Imaging Studies Brain CT 10/03/25 14:37 IMPRESSION: No acute intracranial pathology. Bilateral parietal craniectomies. A left frontal approach ventriculoperitoneal shunt catheter remains in place with the tip in the 3rd ventricle. No hydrocephalus. Paranasal sinus disease. Reading Location[facility] Discharge Plan Triage Chief Complaint: Other, Pain/Inj ED Provider: Katia Iglesias Dx/Rx/DC Orders Clinical Impression: Headache, Neck pain Instructions: Self-Care for Headaches, ED Neck Pain Prescriptions: No Action clonidine HCl 0.1 mg tablet PO topiramate 100 mg tablet 100 mg PO DAILY risperidone 1 mg tablet 1 mg PO QHS Primary Care Provider: Delmi Doty NP Referrals: Delmi Dtoy NP, [employer] [Primary Care Provider, [facility]] Activity Restrictions/Additional Instructions: You should call your neurologist tomorrow morning and follow-up given you are unsure if you have seen her recently. She should inform her that you have been having the headaches and your workup here in the emergency department. Your evaluation in the Emergency Department did not reveal any acute reason for admission. However, I want to emphasize that you may be early in the course of a disease process or illness even if it is not present. For this reason you should follow-up within 24 hours for reevaluation with either your primary care physician or if necessary back here in the Emergency Department. You should return to the Emergency Department immediately if your symptoms worsen or new symptoms develop. Print Language: Turkish
[2025-10-03 16:05] VITALS: BP 112/79; PULSE 49; RESP 16; TEMP 36.6; O2SAT 97
== END 2025-10-03 17:03 | disposition home or self-care (01) ==
PROVIDERS: Emergency Provider Student in an Organized Health Care Education/Training Program; PCP Nurse Practitioner Family; Visit Provider Student in an Organized Health Care Education/Training Program
DX: R51.9 Headache, unspecified (principal); M54.2 Cervicalgia
CPT/HCPCS: 70450; 75809; 80048; 85025; 96361; 96374; 99283; A4216